=== PATIENT | male | born 1945 | race Caucasian/White ===

== ENCOUNTER → 2017-04-21 | Outpatient (CLI) | payer OTHER | LOC: M.NUC 04-14 10:15 | DX: C64.9 Malignant neoplasm of unspecified kidney, except renal pelvis (principal); C79.51 Secondary malignant neoplasm of bone; Z98.890 Other specified postprocedural states ==

== ENCOUNTER → 2018-10-01 | Outpatient (CLI) | payer OTHER ==
[2018-10-01] VITALS (8 sets, daily range): BP systolic 90–108; BP diastolic 39–49
[~2018-10-01] MED LIST: ASPIRIN81 M2 PO; COLACE100 MG PO; COMPAZINE10 M2 PO; IRON325 PO; LANTUS SOL100 UNIT/1 INJECTION; LANTUS100 UNIT/M SUBQ; LIPITOR40 MG PO; LOPRESSOR50 PO; MEDROLDOSEPACK PO; PREDNISONE 10 M10 MG PO; TESSALON PERLE100 MG PO; VICTOZA 3-0.6 MG/0.1 INJECTION; VITAMIN D3400 UNIT PO
[2018-10-01 09:19] LABS: HEMATOCRIT 32.2 % (42.0-52.0); HEMOGLOBIN 10.4 gm/dL (14.0-18.0); MCH 24.3 pg (26.0-34.0); MCHC 32.4 g/dL (28.0-37.0); MCV 74.9 fL (80.0-100.0); RBC 4.3 mil/uL (4.50-6.00); RDW-CV 21.8 % (10.5-14.5); WBC 9.1 thou/uL (4.0-11.0)
[2018-10-01 09:23] LABS: CALCIUM 9.4 mg/dL (8.5-10.1); CREATININE 1.4 mg/dL (0.6-1.3); POTASSIUM 3.9 mmol/L (3.5-5.1)
[2018-10-01 09:25] LABS: APTT 28.5 Seconds (25.0-31.3); INR 1.1; PROTIME 11.7 Seconds (9.20-11.50)
[2018-10-01 09:28] LABS: ALBUMIN 2.5 g/dL (3.4-5.0); TOTAL BILIRUBIN 0.5 mg/dL (<0.1-1.0); TOTAL PROTEIN 7.4 g/dL (6.4-8.2)
== END | disposition home or self-care (01) ==
LOC: M.INT 07:34
PROVIDERS: Radiology Diagnostic Radiology
DX: Z45.2 Encounter for adjustment and management of vascular access device (principal); C64.9 Malignant neoplasm of unspecified kidney, except renal pelvis; I10 Essential (primary) hypertension; E11.9 Type 2 diabetes mellitus without complications; I25.10 Atherosclerotic heart disease of native coronary artery without angina pectoris; Z95.1 Presence of aortocoronary bypass graft; Z85.118 Personal history of other malignant neoplasm of bronchus and lung; Z85.830 Personal history of malignant neoplasm of bone; Z79.82 Long term (current) use of aspirin; Z79.899 Other long term (current) drug therapy; Z79.4 Long term (current) use of insulin; Z98.890 Other specified postprocedural states; Z79.01 Long term (current) use of anticoagulants